=== PATIENT | female | born 1980 | race Caucasian/White ===

== ENCOUNTER 2020-09-26 20:06 | Inpatient (IN) | payer MEDICARE, MEDICAID, SELFPAY ==
[2020-09-26 20:11] VITALS: BMI 30.2
[2020-09-26] MEDS: acetaminophen 325 mg Tablet 650 MG PO (21:27)
[2020-09-26 22:00] VITALS: BP 119/82; PULSE 70; RESP 18; TEMP 36.6; O2SAT 98
[2020-09-27] MEDS: acetaminophen 325 mg Tablet 650 MG PO ×2 (04:28→12:23)
--- NOTE | 2020-09-27 04:33 | PC.NURSE ---
at about 0420 Patient was in room and woke up crying out I want my MOMMY . Unit FLOWER [employer]KER consoled patient with reassurance that we had spoke to her mother and that she sends her love. Patient is now in day room calmly watching TV.
[2020-09-27] MEDS: hyDROXYzine 25 mg Capsule 50 MG PO (05:22)
[2020-09-27 05:46] VITALS: BP 90/65; PULSE 88; RESP 16; TEMP 37.7; O2SAT 94
[2020-09-27 06:04] LABS: Glucose Point of Care 211 mg/dL (70-110)
[2020-09-27] MEDS: LORazepam 1 mg Tablet PO ×3 (06:34→20:03)
[2020-09-27] MEDS: lisinopril 20 mg Tablet PO (08:44)
[2020-09-27] MEDS: venlafaxine ER (24HR) 150 mg Capsule PO (08:44)
[2020-09-27] MEDS: metformin XR 500 MG Tablet 1000 MG PO (08:45)
[2020-09-27] MEDS: divalproex DR 500 mg Tablet PO ×2 (08:45→20:04)
[2020-09-27] MEDS: propranolol 20 mg Tablet 5 MG PO ×2 (08:45→20:04)
--- NOTE | 2020-09-27 10:37 | PM.NHP ---
Providers/Chief Complaint Admitting Physician: Mike Joy DO Chief Complaint: psychosis HPI NPU History of Present Illness Shirin Johnson is a 40 year old female with MR, history of bipolar disorder, PTSD presented from an [facility] emergency department with reported worsening sammy, irritability, angry episodes as well as delusion of being . She had an elevated lipase of 856 during her evaluation in the emergency department, but patient's work-up in emergency department was otherwise unremarkable. Patient currently denying any mood symptoms, denies any depressed symptoms, denies any suicidal ideation and has no history of suicide attempts or self-harm behavior per patient's guardian and mother, Samantha. She denies any current or recent manic or hypomanic episodes. Patient denies any perceptual disturbances, denies any auditory or visual destinations, denies any current delusions. Patient had reportedly had a delusion that she was with the baby despite having a couple of negative tests on ER encounters over the past couple weeks. Patient states that she knows that she is not and believes that this delusion was triggered by seeing pictures of babies on her tablet and found prior to her emergency department encounter. Patient has a history of PTSD but currently denies any PTSD symptoms. COLLATERAL: Patient's mother and guardian Samantha, reports episodes of irritability and anger that can last for several seconds to several minutes throughout the day over the past week leading up to her emergency department visit. Patient was continuing to have irritability and anger while she was in emergency department requiring as needed medication with olanzapine. Per handoff from emergency department patient had not had any episodes prior to transfer. Patient is followed by [facility] on a monthly basis Review of Systems General: Reports: 10 or more systems reviewed and unremarkable except in HPI and below Meds NPU Home Medications Medication Instructions Recorded Confirmed Last Taken Type atorvastatin [Lipitor] 20 mg PO QPM 09/26/20 09/26/20 09/26/20 History divalproex [Depakote] 500 mg PO BID 09/26/20 09/26/20 09/26/20 History empagliflozin 25 mg PO QAM 09/26/20 09/26/20 09/26/20 History lisinopril 20 mg PO DAILY 09/26/20 09/26/20 09/26/20 History lorazepam [Ativan] 1 mg PO TID 09/26/20 09/26/20 09/26/20 History lurasidone [Latuda] 40 mg PO 1800 09/26/20 09/26/20 09/26/20 History metformin 1,000 mg PO BIDWM 09/26/20 09/26/20 09/26/20 History prazosin 2 mg PO QPM 09/26/20 09/26/20 09/25/20 History propranolol 5 mg PO BID 09/26/20 09/26/20 09/26/20 History trazodone 50 mg PO BEDTIME 09/26/20 09/26/20 09/25/20 History venlafaxine [Effexor XR] 150 mg PO DAILY 09/26/20 09/26/20 09/26/20 History divalproex 500 mg PO BID 09/27/20 09/27/20 09/26/20 History glipizide 20 mg PO 08 09/27/20 09/27/20 09/26/20 History Allergies Allergy/AdvReac Type Severity Reaction Status Date / Time No Known Allergies Allergy Verified 09/26/20 23:12 [facility] NPU Other Psychiatric History: Other Psychiatric History: Per above, seen by outpatient psychiatrist on a monthly basis as well as therapist No reported past psychiatric hospitalizations Denies any past suicide attempts or self-harm behavior Above history corroborated by patient's mother/guardian Mental Status Exam MSE Comments: Appears stated age, disheveled, unkempt, holding a laurence bear, childlike voice and mannerisms, cooperative, polite, good eye contact Psychomotor activity is neither increased nor decreased, no agitation Speech is childlike per above, normal rate, normal volume, spontaneous, clear articulation, not pressured I feel okay, full range of affect, not labile Alert and oriented to person, place, time, situation Memory and concentration appear to be intact per interview Intellectual functioning appears to be low based on history, interview, vocabulary Thought process, linear, no flight of ideas, no looseness of associations Thought content, no delusions, no hallucinations, no suicidal or homicidal ideation Insight and judgment appear to be limited Vitals/I&O/Wt Last Vital Signs Temp 99.9 F H 09/27/20 05:46 Pulse 88 09/27/20 05:46 Resp 16 09/27/20 05:46 BP 90/65 09/27/20 05:46 Pulse Ox 94 09/27/20 05:46 Weight last 48 hrs Weight 74.843 kg A&P Assessment and plan (1) Bipolar disorder: Status: Acute Qualifiers: Current episode severity: unspecified (2) PTSD (post-traumatic stress disorder): Status: Acute Additional A&P Information Patient with history of bipolar disorder with reported sammy although currently not manic and not currently endorsing any mood symptoms and had previously had delusions that she was but currently stating that she knows that she is not . She also reports some musculoskeletal pains including on the inside of her right foot and had previously had an elevated lipase at outlying emergency department prior to transfer. VOLUNTARY ADMIT to inpatient psychiatry REPEAT lipase CONSULT hospitalist for evaluation and treatment of foot pain, evaluation for elevated lipase START home medication Continue to monitor and encourage patient to participate in unit activities to include group sessions, unit milieu Discussed above evaluation and recommendations with patient's guardian, Samantha, who communicate her understanding and agreement. Involuntary Hold Information 96 Hour Hold: 96 Hour Involuntary Admission: No Attestations NPU Medical Necessity Statement*: Psychiatric hospitalization is indicated for medication stabilization, coordination for safe discharge Anticipate hospital stay to exceed 2 midnights Time Spent in Patient Care: Greater than 35 minutes (>than 50% of time spent in counselling and/or direct pt care on unit). Coding Level of Care Code Acute Echocardiograph Technician for [facility] Diagnoses Bipolar disorder F31.9 Current episode severity: unspecified PTSD (post-traumatic stress disorder) F43.10
--- NOTE | 2020-09-27 11:03 | XR_ITS ---
WS: [id number] Exam: XR foot RT 2V [id number] Date/Time of Exam: 09/27/2020 11:19 AM Reason For Exam: pain, history of trauma No acute fracture or dislocation. No soft tissue foreign bodies are seen. Articular relationships are intact. XR/XR foot RT 2V [id number] IMPRESSION: 1. No fracture or other significant finding.
--- NOTE | 2020-09-27 11:03 | PM.CONSULT ---
Providers/Reason For Consult Consulting Physician/Specialty*: Merlin Anderson MD, hospitalist Reason for Consult*: Foot pain, elevated lipase Attending Physician: Mike Joy DO History of Present Illness History of Present Illness Shirin Johnson is a 40 year old female admitted to the psychiatric unit for concerns of worsening sammy, agitation and irritability. I have been asked to see her in consultation secondary to pain in her right foot. I have also been notified that her lipase was elevated on presentation to an outside facility. Patient reports she is doing okay currently. She thinks she twisted her foot, inverting it when getting off the ambulance on her right here. She states it hurts in her arch, to any touch. She denies any other injury that she knows of or previous foot problems on this side. She does have history of left ankle surgery. She states at the outside hospital she did have some vomiting prior to presentation with her mental health problems. She denied any abdominal pain and denies any current abdominal pain currently. She also states she is not nauseated currently. Review of Systems General: Reports: 10 or more systems reviewed and unremarkable except in HPI and below Const: Denies: fever(s) Eyes: Denies: change in vision ENMT: Denies: throat pain Card: Denies: chest pain Resp: Denies: dyspnea GI: Reports: vomiting; Denies: abdominal pain or nausea : Denies: flank pain Musc: Reports: extremity pain; Denies: neck pain Skin/Breast: Denies: rash Neuro: Denies: headache(s) Psych: Reports: anxiety and depression Endo: Denies: polyuria Walt/Lymph: Denies: easy bruising All/Imm: Denies: urticaria Meds/Allergies Home Medications and Allergies Home Medications Medication Instructions Recorded Confirmed Last Taken Type atorvastatin [Lipitor] 20 mg PO QPM 09/26/20 09/26/20 09/26/20 History divalproex [Depakote] 500 mg PO BID 09/26/20 09/26/20 09/26/20 History empagliflozin 25 mg PO QAM 09/26/20 09/26/20 09/26/20 History lisinopril 20 mg PO DAILY 09/26/20 09/26/20 09/26/20 History lorazepam [Ativan] 1 mg PO TID 09/26/20 09/26/2021 History lurasidone [Latuda] 40 mg PO 1800 09/26/20 09/26/20 09/26/20 History metformin 1,000 mg PO BIDWM 09/26/20 09/26/20 09/26/20 History prazosin 2 mg PO QPM 09/26/20 09/26/20 09/25/20 History propranolol 5 mg PO BID 09/26/20 09/26/20 09/26/20 History trazodone 50 mg PO BEDTIME 09/26/20 09/26/20 09/25/20 History venlafaxine [Effexor XR] 150 mg PO DAILY 09/26/20 09/26/20 09/26/20 History divalproex 500 mg PO BID 09/27/20 09/27/20 09/26/20 History glipizide 20 mg PO 08 09/27/20 09/27/20 09/26/20 History Allergies Allergy/AdvReac Type Severity Reaction Status Date / Time No Known Allergies Allergy Verified 09/26/20 23:12 Current Medications Current Medications Generic Name Dose Route Start Last Admin Trade Name Freq PRN Reason Stop Dose Admin Acetaminophen 650 mg 09/26/20 20:10 09/27/20 04:28 Acetaminophen 325 Mg Tablet PO 650 mg Q4H PRN Administration MILD PAIN Divalproex Sodium 500 mg 09/27/20 09:00 09/27/20 08:[address] 500 Mg Tablet PO 500 mg BID CARIE Administration Hydroxyzine Pamoate 50 mg 09/26/20 20:10 09/27/20 05:22 Hydroxyzine 25 Mg Capsule PO 50 mg Q6H PRN Administration ANXIETY Insulin Aspart 0 unit 09/27/20 08:00 09/27/20 08:44 Insulin Aspart 100 Unit/1 Ml SUBCUT 4 unit WM&BEDTIME CARIE Administration Protocol Lisinopril 20 mg 09/27/20 09:00 09/27/20 08:44 Lisinopril 20 Mg Tablet PO 20 mg DAILY CARIE Administration Lorazepam 1 mg 09/27/20 09:00 09/27/20 06:34 Lorazepam 1 Mg Tablet PO 1 mg TID CARIE Administration Metformin HCl 1,000 mg 09/27/20 08:00 09/27/20 08:45 Metformin Xr 500 Mg Tablet PO 1,000 mg BIDWM CARIE Administration Propranolol HCl 5 mg 09/27/20 09:00 09/27/20 08:45 Propranolol 20 Mg Tablet PO 5 mg BID CARIE Administration Venlafaxine HCl 150 mg 09/27/20 09:00 09/27/20 08:44 Venlafaxine Er (24hr) 150 Mg Capsule PO 150 mg DAILY CARIE Administration PFSH Acute PFSH: Medical History (Updated 09/27/20 @ 12:33 by Merlin Anderson MD) Diabetes mellitus Hyperlipidemia Hypertension Volvulus Surgical History (Updated 09/27/20 @ 12:29 by Merlin Anderson MD) History of ankle surgery History of partial colectomy Family History (Updated 09/27/20 @ 12:30 by Merlin Anderosn MD) Other Diabetes Social History (Updated 09/27/20 @ 12:30 by Merlin Andersno MD) Smoking and tobacco status: never smoked Alcohol intake: never Vitals/I&O/Wt Last Vital Signs Temp 99.9 F H 09/27/20 05:46 Pulse 88 09/27/20 05:46 Resp 16 09/27/20 05:46 BP 90/65 09/27/20 05:46 Pulse Ox 94 09/27/20 05:46 Weight last 48 hrs Weight 74.843 kg Physical Exam Narrative: EXAM NARRATIVE: General exam is a conversant white female, who complains of right foot pain HEENT: Atraumatic and normocephalic. Oropharynx clear. Neck is supple no lymphadenopathy or thyromegaly Cardiovascular regular rate and rhythm without murmur, no S3 or S4 Lungs clear no wheezing or crackles Abdomen is soft obese nontender no obvious organomegaly was deferred Extremities no cyanosis clubbing or edema, left lower extremity with scar. Right lower extremity with pes planus, tenderness overlying her arch and medially. Distal pulses intact. Skin no rash Neuro no focal deficits. Data Other Data: Other data: Outlined laboratory demonstrated to sodium 135, creatinine 0.74, negative urine drug screen, negative hCG, normal LFTs, lipase of 856, alcohol level less than 10, CT abdomen and pelvis with mild common bile duct dilation and no evidence of pancreatitis. Constipation was noted, coronavirus previous ER negative, and a normal white blood cell count of 5.9 and hemoglobin of 12.9. UA was negative with the exception of 3+ glucose. Lipase here 72, not significantly elevated with normal LFTs. A&P Assessment and plan (1) Foot pain, right: I have obtained an x-ray of the foot. It shows no fracture. She has no significant edema currently. She can weight-bear as tolerated. She does have some element of pes planus which could be addressed with footwear for her arch as an outpatient. She may qualify for diabetic shoes as well. Tylenol as needed Status: Acute (2) Elevated lipase: No evidence of pancreatitis. Lipase here minimally elevated, and CT scan did not suggest this. Status: Acute (3) Hyponatremia: Pseudohyponatremia. Correct some for her elevated glucose Status: Acute (4) Diabetes mellitus: Agree with sliding scale insulin. Continue home medicines with the exception of Metformin. As she had a CT scan presumably with dye prior to transfer this cannot be started until the Check hemoglobin A1c. Reduce glipizide to 10 mg daily. Higher dose than this is unlikely to be beneficial. Her regimen suggests possible poor control but will await A1c. May need long-acting insulin added. Status: Acute (5) Hypertension: Continue home meds Status: Acute (6) Hyperlipidemia: Continue home meds Status: Acute (7) Bipolar disorder: Defer to psychiatry Status: Acute Qualifiers: Current episode severity: unspecified Additional A&P Information Full code Thank you for this consultation. I will continue to follow with you. Consult Attestations Medical Necessity Statement: As per primary Time Spent in Patient Care: Greater than 35 minutes Coding Level of Care Code Acute Pneumatic Deicer Inspector for [facility] Diagnoses Foot pain, right M79.671 Elevated lipase R74.8 Hyponatremia E87.1 Diabetes mellitus E11.9 Hypertension I10 Hyperlipidemia E78.5 Bipolar disorder F31.9 Current episode severity: unspecified
[2020-09-27 11:19] LABS: Glucose Point of Care 246 mg/dL (70-110)
[2020-09-27 11:37] LABS: Alanine Aminotransferase 25 U/L (0-33); Albumin Level 4.8 g/dL (3.5-5.2); Alkaline Phosphatase 81 IU/L (35-105); Anion Gap 16.7 (5-19); Aspartate Amino Transferase 14 U/L (0-32); Blood Urea Nitrogen 24 mg/dL (6-20); Calcium 9.4 mg/dL (8.5-10.5); Carbon Dioxide 24 mmol/L (22-29); Chloride 93 mmol/L (98-107); Globulin 2.4 g/dL (1.3-4.6); Glomerular Filtration Rate 68.7 mL/min (90-130); Glucose 274 mg/dL (65-115); Lipase 72 U/L (13-60); Osmolality Calculated 282 mOsm/kg (285-295); Potassium 4.7 mmol/L (3.5-5.1); Sodium 129 mmol/L (136-145); Total Bilirubin 0.4 mg/dL (0.15-1.2); Total Protein 7.2 g/dL (6.6-8.7)
[2020-09-27 14:00] VITALS: BP 136/97; PULSE 106; RESP 20; TEMP 36.2; O2SAT 95
[2020-09-27 15:45] LABS: Estmated Average Glucose 140; Hemoglobin A1C 6.5 % (4.0-6.0)
[2020-09-27] MEDS: ondansetron 4 MG Tablet PO (16:08)
[2020-09-27] MEDS: loperamide 2 mg Capsule PO (16:08)
--- NOTE | 2020-09-27 16:09 | PC.NURSE ---
Loperamide 2mg PO administered per PT C/O of diarrhea, and Zofran 4 mg PO administered for PT C/O of nausea. Will monitor for medication effectiveness.
[2020-09-27 16:39] LABS: Glucose Point of Care 112 mg/dL (70-110)
[2020-09-27] MEDS: lurasidone 20 mg Tablet 40 MG PO (17:18)
[2020-09-27] MEDS: trazodone 50 mg Tablet PO (20:03)
[2020-09-27] MEDS: prazosin 1 mg Capsule 2 MG PO (20:03)
[2020-09-27] MEDS: atorvastatin 40 mg Tablet 20 MG PO (20:04)
[2020-09-27 20:07] LABS: Glucose Point of Care 281 mg/dL (70-110)
[2020-09-27 22:00] VITALS: BP 107/71; PULSE 92; RESP 18; TEMP 36.9; O2SAT 96
[2020-09-28] MEDS: acetaminophen 325 mg Tablet 650 MG PO (04:57)
[2020-09-28 06:00] VITALS: BP 130/90; PULSE 93; RESP 20; TEMP 36.4; O2SAT 100
[2020-09-28 06:05] LABS: Glucose Point of Care 227 mg/dL (70-110)
[2020-09-28] MEDS: divalproex DR 500 mg Tablet PO (07:27)
[2020-09-28] MEDS: LORazepam 1 mg Tablet PO (07:27)
[2020-09-28] MEDS: propranolol 20 mg Tablet 5 MG PO (07:27)
[2020-09-28] MEDS: lisinopril 20 mg Tablet PO (07:27)
[2020-09-28] MEDS: venlafaxine ER (24HR) 150 mg Capsule PO (07:28)
--- NOTE | 2020-09-28 08:37 | P.DS_ITS ---
Diagnoses at Discharge Discharge Diagnosis (1) Foot pain, right: Status: Acute (2) Elevated lipase: Status: Acute (3) Hyponatremia: Status: Acute (4) Diabetes mellitus: Status: Acute (5) Hypertension: Status: Acute (6) Hyperlipidemia: Status: Acute (7) Bipolar disorder: Status: Acute Qualifiers: Current episode severity: unspecified Reason for Visit Reason for Visit: psychosis Hospital Course Hospital Course 40 year old female with MR, history of bipolar disorder, PTSD presented from an outlying emergency department with reported worsening sammy, irritability, angry episodes as well as delusion of being . She had an elevated lipase of 856 during her evaluation in the emergency department, but patient's work-up in emergency department was otherwise unremarkable. Patient was restarted on her home medications at the time of initial evaluation. Subsequent lipase was slightly elevated and the patient continued to not have any complaints. Hospitalist was consulted to evaluate for patient's previous elevated lipase as well as right foot pain. Patient stated that she had twisted her foot getting into the ambulance on her way to this hospital. X-rays demonstrated no fracture and patient subsequently reported improvement. Also of note, patient's serum sodium was noted to be 129 and follow-up labs but denied any changes in cognition, nausea or any other complaints. Patient was compliant with her medications and outside of a transient episode of crying after getting off of the phone with her mother patient had an unremarkable stay with no aggressive behavior and no demonstration of manic or psychotic behavior. Patient was reporting that she had previously thought that she had had a baby but was able to discuss that she knew that she had not had any babies. Patient did not communicate any other delusions. Patient was not suicidal and was not endorsing any psychiatric symptoms at the time of discharge and did not appear to pose an imminent threat of harm to self or others. Low threat of harm to self or others although patient does have developmental delay with poor frustration tolerance which may lead to unexpected, impulsive behavior. Risk mitigation included psychiatric hospitalization for observation for any psychotic symptoms or signs of sammy or any other psychiatric conditions that could be mitigated with medication stabilization. Patient was started on home medications with no reports of any medication side effects. Continue compliance with her medication and follow-up appointments, especially behavioral therapies targeting patient's frustration tolerance will also help with further mitigating any risk. Discharge plan was discussed with patient's guardians, patient's mother and sister, who communicated their understanding and agreement with plan. Involuntary Hold Information 96 Hour Hold: 96 Hour Involuntary Admission: No Mental Status Exam MSE Comments: Sitting on her bed, holding a laurence bear, calm, cooperative, childlike, good eye contact, somewhat disheveled and unkempt hair Psychomotor activity is neither increased nor decreased, no agitation Speech is childlike per above, normal rate, normal volume, spontaneous, clear articulation, not pressured I feel good, full range of affect, smiles appropriately at times, not labile Alert and oriented to person, place, time, situation Memory and concentration appear to be intact per interview Thought process, linear, no flight of ideas, no looseness of associations Thought content, no delusions, no hallucinations, no suicidal or homicidal ideation Insight and judgment appear to be limited Discharge Data Data Completed and Pending: Completed Studies During Hospitalization Category Date Time Status XR foot RT 2V 736 20 Routine Exams 09/27/20 11:03 Completed Labs from last 24 hours 09/28/20 09/27/20 09/27/20 06:01 20:04 16:35 Sodium Potassium Chloride Carbon Dioxide Anion Gap BUN Creatinine GFR Calculation Glucose POC Glucose 227 H 281 H 112 H Estimat Average Gl ucose Hemoglobin A1c Calculated Osmolal ity Calcium Total Bilirubin AST ALT Alkaline Phosphata se Total Protein Albumin Globulin Lipase 09/27/20 09/27/20 09/27/20 14:50 11:16 10:54 Sodium 129 L Potassium 4.7 Chloride 93 L Carbon Dioxide 24 Anion Gap 16.7 BUN 24 H Creatinine 0.9 GFR Calculation 68.7 L Glucose 274 H POC Glucose 246 H Estimat Average Gl ucose 140 Hemoglobin A1c 6.5 H Calculated Osmolal ity 282 L Calcium 9.4 Total Bilirubin 0.4 AST 14 ALT 25 Alkaline Phosphata se 81 Total Protein 7.2 Albumin 4.8 Globulin 2.4 Lipase 72 H Vitals: Last Vital Signs Temp 97.6 F 09/28/20 06:00 Pulse 93 09/28/20 06:00 Resp 20 H 09/28/20 06:00 BP 130/90 09/28/20 06:00 Pulse Ox 100 09/28/20 06:00 Discharge Plan Discharge Patient Disposition: Home Condition: Stable Prescriptions: Continued metformin 1,000 mg Tablet 1,000 mg PO BIDWM RF: 0 lisinopril 20 mg Tablet 20 mg PO DAILY RF: 0 Ativan 1 mg Tablet 1 mg PO TID RF: 0 Latuda 40 mg Tablet 40 mg PO 1800 RF: 0 empagliflozin 25 mg Tablet 25 mg PO QAM RF: 0 Lipitor 20 mg Tablet 20 mg PO QPM RF: 0 trazodone 50 mg Tablet 50 mg PO BEDTIME RF: 0 Effexor XR 150 mg Capsule,Extended Release 24hr 150 mg PO DAILY RF: 0 Depakote 500 mg Tablet,Delayed Release (Dr/Ec) 500 mg PO BID RF: 0 propranolol 10 mg Tablet 5 mg PO BID RF: 0 prazosin 2 mg Capsule 2 mg PO QPM RF: 0 glipizide 10 mg tablet extended release 24hr 20 mg PO 08 RF: 0 divalproex 500 mg tablet extended release 24 hr 500 mg PO BID RF: 0 Discharge Orders: Discharge Order (Routine); Ordered 09/28/20 Ordered By: Mike Joy Referrals: [facility] [Other] [facility] [Other] Discharge Diet: Usual diet Discharge Activity: Resume usual activity Patient Instructions: Opioid Safety Discharge Attestations NPU Time Spent in Discharge Care*: greater than 30 min Status at Discharge: Cognitive status at discharge: mildly impaired cognition , Behavioral status at discharge: cooperative , Functional status at discharge: independent ambulation Overall status at discharge: patient is back to baseline Coding Level of Care Code Acute [facility] note Diagnoses Foot pain, right M79.671 Elevated lipase R74.8 Hyponatremia E87.1 Diabetes mellitus E11.9 Hypertension I10 Hyperlipidemia E78.5 Bipolar disorder F31.9 Current episode severity: unspecified
--- NOTE | 2020-09-28 08:47 | P.PN_ITS ---
Subjective Subjective: Interval history: Foot still hurts but less so. No vomiting, nausea or abdominal pain. Medications: Reviewed: Yes Vitals/I&O/Wt Last Vital Signs Temp 97.6 F 09/28/20 06:00 Pulse 93 09/28/20 06:00 Resp 20 H 09/28/20 06:00 BP 130/90 09/28/20 06:00 Pulse Ox 100 09/28/20 06:00 Weight last 48 hrs Weight 74.843 kg Physical Exam Narrative: EXAM NARRATIVE: General exam no apparent distress Cardiovascular regular rate and rhythm without murmur Lungs clear Abdomen is soft with positive bowel sounds Extremities no cyanosis clubbing or edema, right foot without significant swelling. Data : 09/27/20 10:54 A&P Assessment and plan (1) Foot pain, right: I have obtained an x-ray of the foot. It shows no fracture. She has no significant edema currently. She can weight-bear as tolerated. She does have some element of pes planus which could be addressed with footwear for her arch as an outpatient. She may qualify for diabetic shoes as well. Tylenol as needed She should follow-up with her primary care provider regarding her right foot pain Status: Acute (2) Elevated lipase: No evidence of pancreatitis. Lipase here minimally elevated, and CT scan did not suggest this. No need to recheck lipase unless symptoms occur. Status: Acute (3) Hyponatremia: Pseudohyponatremia. Correct some for her elevated glucose Status: Acute (4) Diabetes mellitus: Agree with sliding scale insulin. Continue home medicines with the exception of Metformin. As she had a CT scan presumably with dye prior to transfer this cannot be started until the 17 Hemoglobin A1c shows adequate control. Would continue home medications on discharge. Status: Acute (5) Hypertension: Continue home meds Status: Acute (6) Hyperlipidemia: Continue home meds Status: Acute (7) Bipolar disorder: Defer to psychiatry Status: Acute Qualifiers: Current episode severity: unspecified Additional A&P Information Full code Thank you for this consultation. I will sign off at this point. Please call with any concerns. Attestations Medical Necessity Statement*: As per primary Coding Level of Care Code Acute Freight Flow Sales Leader for [facility] Diagnoses Foot pain, right M79.671 Elevated lipase R74.8 Hyponatremia E87.1 Diabetes mellitus E11.9 Hypertension I10 Hyperlipidemia E78.5 Bipolar disorder F31.9 Current episode severity: unspecified
[2020-09-28 08:53] VITALS: BP 130/90; PULSE 93; RESP 20; TEMP 36.4; O2SAT 100
== END 2020-09-28 11:33 | disposition home or self-care (01) | DRG 885 ==
PROVIDERS: Internal Medicine; Admitting Provider Psychiatry & Neurology Psychiatry; Visit Provider Psychiatry & Neurology Psychiatry
DX: F31.9 Bipolar disorder, unspecified (principal); E87.1 Hypo-osmolality and hyponatremia; F43.10 Post-traumatic stress disorder, unspecified; M25.571 Pain in right ankle and joints of right foot; E11.9 Type 2 diabetes mellitus without complications; E78.5 Hyperlipidemia, unspecified; I10 Essential (primary) hypertension; Z90.49 Acquired absence of other specified parts of digestive tract; M21.41 Flat foot [pes planus] (acquired), right foot; Z79.84 Long term (current) use of oral hypoglycemic drugs
CPT/HCPCS: 36416; 73620; 80053; 82962; 83036; 83690; 96372; J1815; Q0162